=== PATIENT | female | born 1990 | race Caucasian/White ===

== ENCOUNTER → 2018-02-13 | Outpatient (CLI) | payer OTHER ==
[2018-02-13] MEDS: GADOBUTROL 7.5 MMOL/7.5 ML VIAL IV (10:12)
== END | disposition home or self-care (01) ==
LOC: KCIC MRI 09:12
DX: R53.1 Weakness (principal)
CPT/HCPCS: 70553; A9585

== ENCOUNTER → 2018-03-01 | Day surgery (SDC) | payer OTHER ==
[~2018-03-01] MED LIST: LIDOCAINE 2% PF Vial for OR 5 ML VIAL.; PROPOFOL 20 ML IV; PROPOFOL 40 ML IV; fentaNYL PF VIAL 100 MCG/2 ML VIAL
[2018-03-01] MEDS: IV RINGERS,LACTATED 1000ML 1,000 ML IV (07:34)
[2018-03-01 07:36] LABS: NEG OBC UR NEG; POS OBC UR POS; U PREG PATIENT NEGATIVE (NEG)
[2018-03-04 18:12] LABS: ANA INTERP Negative (.)
== END | disposition home or self-care (01) ==
LOC: SURG 06:49
DX: K22.2 Esophageal obstruction (principal); K29.80 Duodenitis without bleeding; K64.0 First degree hemorrhoids; Z91.040 Latex allergy status; Z91.041 Radiographic dye allergy status; D64.9 Anemia, unspecified; F41.9 Anxiety disorder, unspecified; F32.9 Major depressive disorder, single episode, unspecified; K21.9 Gastro-esophageal reflux disease without esophagitis; M79.7 Fibromyalgia; Z82.49 Family history of ischemic heart disease and other diseases of the circulatory system; F17.210 Nicotine dependence, cigarettes, uncomplicated; Z79.899 Other long term (current) drug therapy
CPT/HCPCS: 36415; 45378; 45380; 81025; 86038; 88305; J2001; J2704; J3010